=== PATIENT | female | born 1965 | race Caucasian/White ===

== ENCOUNTER → 2016-07-08 | Outpatient (REF) | payer BC ==
[~2016-07-08] MED LIST: /CIPR75TA OR; ACET65TA OR; FLAG500T OR; RANI150C OR; VICO5TAB PO
== END ==
LOC: M LAB REF 15:08
PROVIDERS: ATTEND Internal Medicine
DX: R07.9 Chest pain, unspecified (principal)

== ENCOUNTER → 2016-07-09 | Outpatient (CLI) | payer BC ==
[~2016-07-09] MED LIST changes: +ISOVUE-370 76% 100ML VIAL (Q9967) As Ordered ONE; +LIDOCAINE 1% MDV 20ML VIAL As Ordered ONE
--- NOTE | 2016-07-09 13:13 | REP ---
CTA chest, 07/09/2016: Indication: Atypical chest pain, positive D-dimer, exclude pulmonary embolus. The patient is deaf. Comparison: CT chest with IV contrast 03/18/2007. Technique: Following dynamic IV contrast administration with 75 ml Isovue 370 mg/ml, 3 mm contiguous spiral axial sections were performed through the chest. Findings: The thoracic aorta is without aneurysm or visualized aortic dissection. There are no pathologically enlarged mediastinal or hilar nodes. There are, however, no visualized filling defects within the main, lobar or segmental pulmonary arteries or findings to suggest pulmonary artery embolus. There is some cardiac motion artifact and spray artifact projected over the pulmonary artery outflow tract. Mild interstitial changes/scarring and atelectatic changes seen with lower lobe predominance, stable. Visualized portions of the liver, spleen, pancreas are unremarkable. Adrenal glands are normal. There has been a prior cholecystectomy. Impression1. No evidence of pulmonary artery embolus. 2. Thoracic aorta without aneurysm or dissection. 3. Interstitial changes/scarring and atelectasis bilaterally with lower lobe predominance, stable. Signed by Alisson Edwards MD 07/11/2016 02:42 P
== END ==
LOC: M RAD 09:47
PROVIDERS: ATTEND Internal Medicine
DX: J98.11 Atelectasis (principal)
CPT/HCPCS: 71275; C1894; Q9967

== ENCOUNTER → 2016-08-29 | Outpatient (CLI) | payer BC ==
[~2016-08-29] MED LIST changes: -ISOVUE-370 76% 100ML VIAL (Q9967) As Ordered ONE; -LIDOCAINE 1% MDV 20ML VIAL As Ordered ONE
--- NOTE | 2016-08-29 14:19 | REP ---
TWO VIEW CHEST: Two views of the chest are performed and compared to prior study of 06/08/2012. Mild interstitial prominence appears chronic in nature without evidence of acute infiltrate. The heart is normal in size and the mediastinal silhouette is unremarkable and unchanged. There are degenerative changes of the spine. IMPRESSION: No acute pulmonary disease. Signed by Wilber Zamorano MD 08/29/2016 06:21 P
== END ==
LOC: M LRY 13:02
PROVIDERS: ATTEND Physician Assistant
DX: R05 Cough (principal)

== ENCOUNTER → 2017-05-09 | Outpatient (CLI) | payer BC ==
--- NOTE | 2017-05-09 11:02 | REPMRS ---
Patient History The patient states she has not had a clinical breast exam in over a year. Patient is postmenopausal. No known family history of cancer. Digital Woman Screen Mammo: May 09, 2017 - Exam #: [id number] Bilateral CC and MLO view(s) were taken. Technologist: Tory Good, Technologist Prior study comparison: February 11, 2016, bilateral digital mammo screening bilat, performed at [facility]. September 21, 2013, digital woman screen mammo performed at [facility]. FINDINGS: There are scattered fibroglandular densities. There has been no change in the appearance of the mammogram from the prior studies. There is a mild amount of residual fibroglandular tissue which is fairly symmetric. There is no interval development of dominant mass, architectural distortion, or clustered microcalcification suggestive of malignancy. ASSESSMENT: BI-RADS/ACR category 1 mammogram. Negative. Recommendation Routine screening mammogram in 1 year (for women over age 40). This mammogram was interpreted with the aid of an FDA-approved computer-aided dectection system. Electronically Signed By: Wilber Zamroano MD 05/09/17 [id number]
== END ==
LOC: M WHC 09:27
PROVIDERS: ATTEND Internal Medicine
DX: Z12.31 Encounter for screening mammogram for malignant neoplasm of breast (principal); Z78.0 Asymptomatic menopausal state

== ENCOUNTER → 2017-10-07 | Outpatient (CLI) | payer BC | LOC: M LRY 17:13 | DX: M79.672 Pain in left foot (principal) | CPT/HCPCS: 73630 ==

== ENCOUNTER → 2018-06-01 | Outpatient (REF) | payer BC | LOC: M SFHCLERA 13:45 | DX: J02.9 Acute pharyngitis, unspecified (principal) ==

== ENCOUNTER 2018-07-21 16:12 | Emergency (ER) | payer OTHER, BC ==
[~2018-07-21] VITALS: Ht 162.6 cm; Wt 147.3 kg
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
[2018-07-21] MEDS ORDERED: CYCL5TAB PO (18:20)
[2018-07-21] MEDS ORDERED: NAPR-50 PO (18:20)
[2018-07-21 18:23] VITALS: BP 166/89
== END 2018-07-21 18:24 | disposition home or self-care (01) ==
LOC: M ED 16:12
DX: Z04.1 Encounter for examination and observation following transport accident (principal); S20.212A Contusion of left front wall of thorax, initial encounter; V43.62XA Car passenger injured in collision with other type car in traffic accident, initial encounter; Y92.410 Unspecified street and highway as the place of occurrence of the external cause; K21.9 Gastro-esophageal reflux disease without esophagitis; Z86.718 Personal history of other venous thrombosis and embolism; Z91.018 Allergy to other foods; Z88.2 Allergy status to sulfonamides

== ENCOUNTER → 2018-09-13 | Outpatient (CLI) | payer BC ==
[~2018-09-13] MED LIST changes: +CYCL5TAB PO; +NAPR-50 PO
--- NOTE | 2018-09-13 13:44 | REPMRS ---
Patient History The patient states she has not had a clinical breast exam in over a year. No known family history of cancer. Digital Woman Screen Mammo: September 13, 2018 - Exam #: [id number] Bilateral CC and MLO view(s) were taken. Technologist: Mary Horan Technologist Prior study comparison: May 09, 2017, digital woman screen mammo performed at [facility]. February 11, 2016, bilateral digital mammo screening bilat, performed at [facility]. September 21, 2013, digital woman screen mammo performed at [facility]. FINDINGS: There are scattered fibroglandular densities. There has been no change in the appearance of the mammogram from the prior studies. There is a mild amount of scattered fibroglandular density which is fairly symmetric. There is no interval development of dominant mass, architectural distortion, or clustered microcalcification suggestive of malignancy. 3-D tomosynthesis shows no additional findings. Assessment: BI-RADS/ACR category 1 mammogram. Negative Mammogram. Recommendation Routine screening mammogram of both breasts in 1 year (for women over age 40). This patient's Lifetime Breast Cancer RIsk is estimated at 6.9 %. This mammogram was interpreted with the aid of an FDA-approved computer-aided dectection system. Electronically Signed By: Den Owusu MD 09/13/18 [id number]
== END ==
LOC: M WHC 09:55
PROVIDERS: ATTEND Internal Medicine
DX: Z12.31 Encounter for screening mammogram for malignant neoplasm of breast (principal)

== ENCOUNTER → 2019-07-03 | Outpatient (CLI) | payer BC ==
[~2019-07-03] MED LIST changes: -NAPR-50 PO; +NAPR-837 PO
--- NOTE | 2019-07-03 13:15 | REP ---
MRI LEFT ELBOW: TECHNIQUE: Multiple sequences in the axial, coronal and sagittal planes. There is mild ill-defined high signal on T2-weighted images in the proximal common extensor tendon along the lateral humeral epicondyle compatible with lateral epicondylitis. There is no abnormal signal in the common flexor tendon medially. The medial and lateral collateral ligaments are intact. Biceps, triceps, brachialis, and brachioradialis demonstrate no abnormal signal and appear intact. Ulnar nerve has a normal appearance. No ganglion cyst or joint effusion is seen. No marrow edema or other bone marrow signal abnormality is seen. Joint surfaces demonstrate no focal defect. IMPRESSION: Findings compatible with lateral epicondylitis. No evidence of tendon or ligament tear. Electronically Signed by Wilber Zamorano MD 07/04/2019 09:50 A
--- NOTE | 2019-07-03 13:35 | REP ---
INDICATION: Neck pain PROCEDURE: No MRI cervical spine without contrast. Multiplanar T1, and T2-weighted images multiplanar T1, T2, images. Sagittal STIR images obtained. COMPARISON STUDIES: No prior similar studies FINDINGS: There is llwl-pk-zjwoouvy multilevel degenerative disc disease loss of disc height and disc desiccation seen diffusely throughout the cervical spine. Vertebral heights are well preserved. No randy malalignments. There is mild straightening of the cervical spine. On the sagittal T2-weighted images there is minimal cord impingement more notable at the C5-6 level without evidence of cord compression. No abnormal cord signal. On review of axial images, At C2-3 no significant canal or foraminal narrowing. At C3-4 disc/osteophyte complex with mild left foraminal narrowing and mild canal stenosis. At C4-5 disc/osteophyte complex with mild canal narrowing and mild left foraminal narrowing. At C5-6 disc/osteophyte complex with moderate bilateral foraminal narrowing and sjgc-pk-xkdlupef canal stenosis. At C6-7 disc/osteophyte complex with vkua-qz-rmcqzjpm canal narrowing and toiv-ep-knqyjyfp bilateral foraminal narrowing At C7-T1 no significant canal or foraminal narrowing. On the STIR images, no significant STIR signal abnormality to suggest soft tissue or ligamentous injury. IMPRESSION: Yfrt-lj-swqwtkzi multilevel degenerative disc disease slightly more progressed at the C5-6 and C6-7 levels as described. No definite limiting canal or foraminal stenosis. No abnormal cord signal. Electronically Signed by Cesar Watson MD 07/03/2019 01:27 P
== END ==
LOC: M RAD 10:09
PROVIDERS: ATTEND Physician Assistant
DX: M50.322 Other cervical disc degeneration at C5-C6 level (principal); M50.323 Other cervical disc degeneration at C6-C7 level; M25.78 Osteophyte, vertebrae; M77.12 Lateral epicondylitis, left elbow

== ENCOUNTER → 2019-08-16 | Outpatient (CLI) | payer BC ==
[~2019-08-16] MED LIST changes: +E-Z-GAS II EFFERVESCENT PACKET (SODIUM BICARB./CITRIC ACID/SIMETHICONE) As Ordered ONE; +E-Z-HD 98% w/w 340GM SUSP BTL As Ordered ONE; +E-Z-PAQUE 96% w/w SUSP 176GM BTL As Ordered ONE
--- NOTE | 2019-08-16 19:35 | REP ---
Examination Requested: Esophagram Barium Swallow Reason For Exam/Comment: Dysphasia Esophagram: The procedure was performed JACKELINE Mancilla, under the direct supervision of Dr. Owusu. The images were reviewed with Dr. Owusu. A single PA chest x-ray is submitted as a ambulatory services representative film. The superior mediastinal structures are midline. The heart size is within normal limits. The lungs are clear. Liquid barium and gas producing granules were given in the erect position as well as liquid barium in the prone oblique position, in order to perform a double contrast esophagram examination. Oral and pharyngeal stages of the examination demonstrated laryngeal penetration. Esophageal transport is efficient and there is no esophagitis, stricture, or mucosal ring noted. There is no hiatal hernia noted. Gastroesophageal reflux was not visualized throughout the course of the exam. Impression: 1. Laryngeal penetration, otherwise unremarkable esophagram. 0.3 minutes of fluoroscopy time was utilized for this procedure. Some fluoroscopic images are performed with last image hold technology. These images require no additional radiation. Reviewed by JACKELINE Kam 08/16/2019 05:36 P Electronically Signed by Ellis Owusu MD 08/16/2019 07:26 P
== END ==
LOC: M RAD 10:02
PROVIDERS: ATTEND Internal Medicine
DX: R13.10 Dysphagia, unspecified (principal)

== ENCOUNTER → 2020-03-12 | Outpatient (REF) | payer BC ==
[~2020-03-12] MED LIST changes: -E-Z-GAS II EFFERVESCENT PACKET (SODIUM BICARB./CITRIC ACID/SIMETHICONE) As Ordered ONE; -E-Z-HD 98% w/w 340GM SUSP BTL As Ordered ONE; -E-Z-PAQUE 96% w/w SUSP 176GM BTL As Ordered ONE
== END ==
LOC: M LAB REF 16:08
PROVIDERS: ATTEND Internal Medicine
DX: M25.522 Pain in left elbow (principal)

== ENCOUNTER → 2020-04-11 | Outpatient (CLI) | payer BC ==
--- NOTE | 2020-04-11 10:36 | REPMRS ---
Patient History The patient states she has not had a clinical breast exam in over a year. No known family history of cancer. Digital Woman Screen Mammo: April 11, 2020 - Exam #: [id number] Bilateral CC and MLO view(s) were taken. Technologist: Radha Gatica, Technologist Prior study comparison: September 13, 2018, bilateral digital woman screen mammo performed at [facility]. May 09, 2017, digital woman screen mammo performed at [facility]. February 11, 2016, bilateral digital mammo screening bilat, performed at [facility]. FINDINGS: The breast tissue is almost entirely fat. The Volpara volumetric breast density category is: A. There has been no change in the appearance of the mammogram from the prior studies. There is no interval development of dominant mass, architectural distortion, or grouped microcalcification typical of malignancy. 3-D tomosynthesis shows no additional findings. Assessment: BI-RADS/ACR category 1 mammogram. Negative Mammogram. Recommendation Routine screening mammogram of both breasts in 1 year (for women over age 40). This patient's Lifetime Breast Cancer RIsk is estimated at 6.7 %. This mammogram was interpreted with the aid of an FDA-approved computer-aided dectection system. Electronically Signed By: Den Owusu MD 04/11/20 [id number]
== END ==
LOC: M WHC 09:06
PROVIDERS: ATTEND Internal Medicine
DX: Z12.31 Encounter for screening mammogram for malignant neoplasm of breast (principal)

== ENCOUNTER → 2020-06-26 | Outpatient (CLI) | payer SELFPAY | LOC: M LABSMTC 10:42 | PROVIDERS: ATTEND Pediatrics | DX: Z20.828 Contact with and (suspected) exposure to other viral communicable diseases (principal) ==

== ENCOUNTER → 2021-05-19 | Outpatient (CLI) | payer BC ==
--- NOTE | 2021-05-19 11:16 | REP ---
INDICATION: SCREENING MAMMO. COMPARISON: 04/11/2020 as well as other prior exams. TECHNIQUE: MLO and CC views bilateral breasts with tomosynthesis. FINDINGS: Mild scattered fibroglandular tissue is again noted bilaterally. There is a possible 5 mm nodule in the inferolateral left breast anteriorly, best seen in the CC projection. There is no other evidence of mass or clustered microcalcifications bilaterally. The Volpara volumetric breast density pattern is A. IMPRESSION: BIRADS/ACR category 0, incomplete. Possible 5 mm nodule inferolateral left breast anteriorly. Recommend spot compression views and ultrasound to further evaluate. This patient's Tyrer-zick lifetime breast cancer risk assessment score is 6.2%. This mammogram was interpreted with the aid of an FDA-approved computer-aided detection system. The patient states she had a clinical breast exam in over 1 year ago. The patient letter being requested is M0. RECOMMENDATION: Recommend spot compression views and ultrasound left breast as discussed above. <Electronically signed by Wilber Zamorano > 05/19/21 [id number]
== END ==
LOC: M WHC 10:18
PROVIDERS: ATTEND Internal Medicine
DX: Z12.31 Encounter for screening mammogram for malignant neoplasm of breast (principal); R92.8 Other abnormal and inconclusive findings on diagnostic imaging of breast

== ENCOUNTER → 2021-06-09 | Outpatient (CLI) | payer BC ==
--- NOTE | 2021-06-09 13:01 | REP ---
INDICATION: LEFT BREAST ADD VIEWS. Left breast nodule COMPARISON: Screening mammogram, 05/19/2021. TECHNIQUE: 2D and 3D spot compression views of the left breast were obtained in the CC and MLO orientations. Targeted left breast ultrasound was performed. FINDINGS: In the anterior 3rd of the left breast, below and lateral to the nipple, in the lower outer quadrant, at the 3-4 o'clock position, approximately 4 cm from the nipple, there is an oval, circumscribed, isodense mass measuring 4 mm in diameter. Left breast ultrasound: There are no cystic or solid masses seen in the left breast. IMPRESSION: BIRADS/ACR : Category 3: Probably benign. The patient letter being requested is M0. RECOMMENDATION: Six-month follow-up mammographic and ultrasound evaluation of the left breast. <Electronically signed by Venancio Lomax > 06/09/21 [id number]
== END ==
LOC: M WHC 10:44
PROVIDERS: ATTEND Internal Medicine
DX: N63.23 Unspecified lump in the left breast, lower outer quadrant (principal)
CPT/HCPCS: 76642; 77065; G0279

== ENCOUNTER → 2022-02-17 | Outpatient (CLI) | payer BC | LOC: M WHC 10:00 | PROVIDERS: ATTEND Internal Medicine | DX: R92.2 Inconclusive mammogram (principal) | CPT/HCPCS: 77065; G0279 ==

== ENCOUNTER → 2022-06-02 | Outpatient (CLI) | payer BC | LOC: M WHC 09:44 | PROVIDERS: ATTEND Internal Medicine | DX: Z12.31 Encounter for screening mammogram for malignant neoplasm of breast (principal) ==

== ENCOUNTER 2022-11-08 13:24 | Emergency (ER) | payer BC ==
[~2022-11-08] VITALS: Ht 162.6 cm; Wt 134.5 kg
[2022-11-08 15:05] LABS: BASO # 0.1 10^3/uL (0.0-0.2); BASO % 0.9 % (0.0-1.0); EOS # 0.2 10^3/uL (0.0-0.5); EOS % 2.4 % (0.0-3.0); HEMATOCRIT 43.8 % (36.0-47.0); LYMPH # 2.2 10^3/uL (1.5-5.0); LYMPH % 26.7 % (24.0-44.0); MEAN CORPUSCULAR VOLUME 90.7 fl (80.0-96.0); MONO # 0.5 10^3/uL (0.0-0.8); MONO % 6.1 % (2.0-8.0); NEUTROPHILS # 5.1 10^3/uL (1.5-8.5); NEUTROPHILS % 63.5 % (36.0-66.0); PLATELET COUNT, AUTOMATED 258 10^3/uL (150-450); RED BLOOD COUNT 4.83 10^6/uL (4.00-5.40)
[2022-11-08 15:14] LABS: INR 0.87
[2022-11-08 15:15] LABS: PARTIAL THROMBOPLASTIN TIME 22.8 SECONDS (24.8-34.2)
[2022-11-08 15:31] LABS: ALBUMIN 3.4 G/DL (3.2-5.2); ALKALINE PHOSPHATASE 83 U/L (46-116); ALT/SGPT 27 U/L (7.0-40); AST/SGOT < 8 U/L (<34); BILIRUBIN,DIRECT 0.1 MG/DL (<0.4); BILIRUBIN,TOTAL 0.4 MG/DL (0.3-1.2); BLOOD UREA NITROGEN 15 MG/DL (9-23); CALCIUM LEVEL 8.6 MG/DL (8.5-10.1); CARBON DIOXIDE LEVEL 22 MMOL/L (20-31); CHLORIDE LEVEL 109 MMOL/L (98-107); CREATININE FOR GFR 0.94 MG/DL (0.55-1.30); GLOMERULAR FILTRATION RATE > 60.0 (>51); GLUCOSE, FASTING 87 MG/DL (60-100); POTASSIUM SERUM 4.2 MMOL/L (3.5-5.1); SODIUM LEVEL 140 MMOL/L (136-145); TOTAL PROTEIN 6.3 G/DL (5.7-8.2)
[2022-11-08] MEDS ORDERED: CEPH500C PO (16:11)
[2022-11-08 17:08] VITALS: BP 142/66
== END 2022-11-08 17:14 | disposition home or self-care (01) ==
LOC: M ED 13:24
DX: L03.115 Cellulitis of right lower limb (principal); K90.0 Celiac disease; H91.90 Unspecified hearing loss, unspecified ear; Z88.2 Allergy status to sulfonamides; Z79.899 Other long term (current) drug therapy

== ENCOUNTER 2022-12-06 07:05 | Observation (INO) | payer BC ==
[~2022-12-06] VITALS: Ht 162.6 cm; Wt 133.5 kg
[2022-12-06] VITALS (7 sets, daily range): BP systolic 104–144; BP diastolic 58–90; PULSE 66; TEMP 97–97.9; O2SAT 94–100
[~2022-12-06 07:05] MED LIST changes: +CEPH500C PO
[2022-12-06] MEDS ORDERED: PHEN30CA21 PO (07:19)
[2022-12-06] MEDS ORDERED: CEQU0.09 OU (07:19)
[2022-12-06] MEDS ORDERED: ONDANSETRON 4MG 2ML VIAL IV ONE (07:55)
[2022-12-06] MEDS: MORPHINE 4 MG/ML 1ML VIAL IV PRN ×2 (08:18→09:50)
[2022-12-06 08:50] LABS: BASO # 0.1 10^3/uL (0.0-0.2); BASO % 0.9 % (0.0-1.0); EOS # 0.2 10^3/uL (0.0-0.5); EOS % 1.8 % (0.0-3.0); HEMATOCRIT 43.5 % (36.0-47.0); HEMOGLOBIN 13.7 g/dl (12.0-15.5); LYMPH # 2.1 10^3/uL (1.5-5.0); LYMPH % 25.8 % (24.0-44.0); MEAN CORPUSCULAR HEMOGLOBIN 28.9 pg (27.0-33.0); MEAN CORPUSCULAR HGB CONC 31.5 g/dl (32.0-36.5); MEAN CORPUSCULAR VOLUME 91.8 fl (80.0-96.0); MONO # 0.5 10^3/uL (0.0-0.8); MONO % 5.8 % (2.0-8.0); NEUTROPHILS # 5.4 10^3/uL (1.5-8.5); NEUTROPHILS % 65.2 % (36.0-66.0); PLATELET COUNT, AUTOMATED 297 10^3/uL (150-450); RED BLOOD COUNT 4.74 10^6/uL (4.00-5.40); WHITE BLOOD COUNT 8.2 10^3/uL (4.0-10.0)
[2022-12-06] MEDS ORDERED: ISOVUE-370 76% 100ML VIAL As Ordered ONE (08:57)
[2022-12-06 09:20] LABS: LIPASE 25 U/L (12-53)
[2022-12-06 09:22] LABS: ALBUMIN 3.7 G/DL (3.2-5.2); ALKALINE PHOSPHATASE 86 U/L (46-116); ALT/SGPT 27 U/L (7.0-40); AST/SGOT 19 U/L (<34); BILIRUBIN,DIRECT 0.2 MG/DL (<0.4); BILIRUBIN,TOTAL 0.7 MG/DL (0.3-1.2); BLOOD UREA NITROGEN 12 MG/DL (9-23); CALCIUM LEVEL 9.2 MG/DL (8.5-10.1); CARBON DIOXIDE LEVEL 26 MMOL/L (20-31); CHLORIDE LEVEL 109 MMOL/L (98-107); CK-MB VALUE MASS 7.7 NG/ML (<3.6); CREATININE FOR GFR 0.85 MG/DL (0.55-1.30); GLOMERULAR FILTRATION RATE > 60.0 (>51); GLUCOSE, FASTING 86 MG/DL (60-100); POTASSIUM SERUM 4.1 MMOL/L (3.5-5.1); SODIUM LEVEL 142 MMOL/L (136-145); TOTAL PROTEIN 6.4 G/DL (5.7-8.2)
[2022-12-06 09:23] LABS: THYROID STIMULATING HORMONE 1.989 uIU/ML (0.55-4.78)
[2022-12-06 09:24] LABS: FREE T4 0.96 NG/DL (0.89-1.76)
[2022-12-06 09:25] LABS: CPK CREATINE PHOSPHOKINASE 77 U/L (34-145)
[2022-12-06 09:36] LABS: RSV AMPLIFICATION NEGATIVE (NEGATIVE)
[2022-12-06 09:42] LABS: INR 0.91; PROTHROMBIN TIME 12.4 SECONDS (12.5-14.5)
[2022-12-06 09:43] LABS: PARTIAL THROMBOPLASTIN TIME 28.1 SECONDS (24.8-34.2)
[2022-12-06] MEDS ORDERED: APIXABAN 5 MG TAB (ELIQUIS) PO SCH (10:15)
[2022-12-06] MEDS ORDERED: APIXABAN 5 MG TAB (ELIQUIS) PO ONE ×2 (10:20→11:45)
[2022-12-06] MEDS ORDERED: OMEG1CAP85 PO (10:22)
[2022-12-06] MEDS ORDERED: HOME MED LIST COMPLETE! XX SCH (10:35)
[2022-12-06] MEDS: PERCOCET 5MG/325MG TAB PO PRN ×2 (14:32→20:22)
[2022-12-06] MEDS ORDERED: ONDANSETRON 4MG TAB PO PRN (18:00)
[2022-12-06] MEDS: APIXABAN 5 MG TAB (ELIQUIS) PO SCH (20:21)
[2022-12-06 21:57] LABS: CK-MB VALUE MASS < 1.0 NG/ML (<3.6)
[2022-12-06 21:59] LABS: CPK CREATINE PHOSPHOKINASE 78 U/L (34-145); MB/CK RELATIVE INDEX 1.28 (< OR =4)
[2022-12-07 04:00] VITALS: BP 119/68; TEMP 96.3; O2SAT 98
[2022-12-07 06:44] LABS: HEMATOCRIT 41.5 % (36.0-47.0); HEMOGLOBIN 12.9 g/dl (12.0-15.5); MEAN CORPUSCULAR HEMOGLOBIN 28.8 pg (27.0-33.0); MEAN CORPUSCULAR HGB CONC 31.1 g/dl (32.0-36.5); MEAN CORPUSCULAR VOLUME 92.6 fl (80.0-96.0); PLATELET COUNT, AUTOMATED 298 10^3/uL (150-450); RED BLOOD COUNT 4.48 10^6/uL (4.00-5.40); WHITE BLOOD COUNT 8.9 10^3/uL (4.0-10.0)
[2022-12-07 06:55] LABS: BLOOD UREA NITROGEN 10 MG/DL (9-23); CALCIUM LEVEL 8.8 MG/DL (8.5-10.1); CARBON DIOXIDE LEVEL 27 MMOL/L (20-31); CHLORIDE LEVEL 105 MMOL/L (98-107); CREATININE FOR GFR 0.84 MG/DL (0.55-1.30); GLOMERULAR FILTRATION RATE > 60.0 (>51); GLUCOSE, FASTING 82 MG/DL (60-100); POTASSIUM SERUM 4.2 MMOL/L (3.5-5.1); SODIUM LEVEL 140 MMOL/L (136-145)
[2022-12-07 07:48] VITALS: BP 115/66; TEMP 97.7; O2SAT 99
[2022-12-07] MEDS: APIXABAN 5 MG TAB (ELIQUIS) PO SCH (08:42)
[2022-12-07] MEDS ORDERED: ELIQ5TAB PO (09:37)
[2022-12-07] MEDS ORDERED: OXYC1TAB23 PO (09:37)
[2022-12-07 10:07] VITALS: BP 128/69; O2SAT 96
[2022-12-07] MEDS ORDERED: AMOX875T2 PO (11:24)
[2022-12-07 11:29] VITALS: BP 111/59; TEMP 97.7; O2SAT 94
[2022-12-07 11:32] VITALS: BP 112/59
[2022-12-07 11:34] VITALS: BP 113/62
[2022-12-08 13:08] LABS: ANTI THROMBIN 3 ANTIGEN IMMUNO 86 % (72-124); ANTI THROMBIN 3 FUNCT ACTIVITY 104 % (75-135); CARDIOLIPIN IGA ANTIBODY <9 APL U/mL (0-11); CARDIOLIPIN IGG ANTIBODY <9 GPL U/mL (0-14); CARDIOLIPIN IGM ANTIBODY <9 MPL U/mL (0-12); PROTEIN C FUNCTIONAL ACTIVITY 124 % (73-180); PROTEIN S FUNCTIONAL ACTIVITY 99 % (63-140)
== END 2022-12-07 13:10 | disposition home or self-care (01) ==
LOC: M ED 07:05 → M ED INP 07:06 → ENRESERV 10:20 → M PCU 10:48
PROVIDERS: ADMIT Internal Medicine; ATTEND Internal Medicine
DX: I26.99 Other pulmonary embolism without acute cor pulmonale (principal); R07.1 Chest pain on breathing; R03.0 Elevated blood-pressure reading, without diagnosis of hypertension; R91.8 Other nonspecific abnormal finding of lung field; E66.01 Morbid (severe) obesity due to excess calories; Z68.43 Body mass index [BMI] 50.0-59.9, adult; R06.02 Shortness of breath; Z88.2 Allergy status to sulfonamides; Z86.718 Personal history of other venous thrombosis and embolism; Z79.899 Other long term (current) drug therapy
CPT/HCPCS: 36415; 71045; 71275; 80047; 80048; 80076; 82550; 82553; 83690; 84145; 84439; 84443; 84484; 85025; 85027; 85300; 85301; 85303; 85305; 85610; 85730; 86140; 86147; 87631; 87641; 93005; 93041; 93970; 94760; 96374; 96375; 96376; 99285; J2405; Q9967

== ENCOUNTER 2023-02-22 12:11 | Emergency (ER) | payer BC ==
[~2023-02-22] VITALS: Ht 167.6 cm; Wt 184.1 kg
[~2023-02-22 12:11] MED LIST changes: +AMOX875T2 PO; +CEQU0.09 OU; +ELIQ5TAB PO; +OMEG1CAP85 PO; +OXYC1TAB23 PO; +PHEN30CA21 PO
[2023-02-22] MEDS ORDERED: ASPIRIN 81MG CHEW TABLET PO ONE (12:50)
[2023-02-22 13:36] LABS: BASO # 0.1 10^3/uL (0.0-0.2); BASO % 0.9 % (0.0-1.0); EOS # 0.1 10^3/uL (0.0-0.5); EOS % 2.1 % (0.0-3.0); HEMATOCRIT 41.2 % (36.0-47.0); HEMOGLOBIN 13.1 g/dl (12.0-15.5); LYMPH # 1.9 10^3/uL (1.5-5.0); LYMPH % 28.8 % (24.0-44.0); MEAN CORPUSCULAR HEMOGLOBIN 29.2 pg (27.0-33.0); MEAN CORPUSCULAR HGB CONC 31.8 g/dl (32.0-36.5); MEAN CORPUSCULAR VOLUME 91.8 fl (80.0-96.0); MONO # 0.5 10^3/uL (0.0-0.8); MONO % 7.1 % (2.0-8.0); NEUTROPHILS % 60.5 % (36.0-66.0); PLATELET COUNT, AUTOMATED 246 10^3/uL (150-450); RED BLOOD COUNT 4.49 10^6/uL (4.00-5.40); WHITE BLOOD COUNT 6.6 10^3/uL (4.0-10.0)
[2023-02-22 13:49] LABS: INR 1.19; PROTHROMBIN TIME 14.8 SECONDS (12.5-14.5)
[2023-02-22 13:50] LABS: PARTIAL THROMBOPLASTIN TIME 27.6 SECONDS (24.8-34.2)
[2023-02-22 14:04] LABS: BLOOD UREA NITROGEN 10 MG/DL (9-23); CALCIUM LEVEL 8.6 MG/DL (8.5-10.1); CARBON DIOXIDE LEVEL 29 MMOL/L (20-31); CHLORIDE LEVEL 108 MMOL/L (98-107); CK-MB VALUE MASS < 1.0 NG/ML (<3.6); CREATININE FOR GFR 0.81 MG/DL (0.55-1.30); GLOMERULAR FILTRATION RATE > 60.0 (>51); GLUCOSE, FASTING 87 MG/DL (60-100); POTASSIUM SERUM 4.3 MMOL/L (3.5-5.1); SODIUM LEVEL 142 MMOL/L (136-145)
[2023-02-22 14:09] LABS: CPK CREATINE PHOSPHOKINASE 79 U/L (34-145); MB/CK RELATIVE INDEX 1.26 (< OR =4)
[2023-02-22] MEDS ORDERED: ISOVUE-370 76% 100ML VIAL As Ordered ONE (14:16)
[2023-02-22 14:49] LABS: CK-MB VALUE MASS < 1.0 NG/ML (<3.6)
[2023-02-22 14:56] LABS: CPK CREATINE PHOSPHOKINASE 78 U/L (34-145); MB/CK RELATIVE INDEX 1.28 (< OR =4)
[2023-02-22 15:42] VITALS: BP 142/75; TEMP 97.1; O2SAT 97
== END 2023-02-22 15:42 | disposition home or self-care (01) ==
LOC: M ED 12:11
DX: R07.89 Other chest pain (principal); I10 Essential (primary) hypertension; K90.0 Celiac disease; Z86.718 Personal history of other venous thrombosis and embolism; Z86.711 Personal history of pulmonary embolism; Z88.2 Allergy status to sulfonamides; M54.9 Dorsalgia, unspecified; Z79.01 Long term (current) use of anticoagulants; Z79.899 Other long term (current) drug therapy
CPT/HCPCS: 36415; 71045; 71275; 80048; 82550; 82553; 84484; 85025; 85610; 85730; 93005; 93041; 94760; 99285; Q9967

== ENCOUNTER → 2023-04-18 | Outpatient (REF) | payer BC | LOC: M LAB REF 16:38 | PROVIDERS: ATTEND Internal Medicine | DX: R07.89 Other chest pain (principal); M25.512 Pain in left shoulder ==

== ENCOUNTER → 2023-04-19 | Outpatient (CLI) | payer BC | LOC: M WUC 10:49 | PROVIDERS: ATTEND Internal Medicine | DX: M54.2 Cervicalgia (principal); R07.9 Chest pain, unspecified; M25.512 Pain in left shoulder ==

== ENCOUNTER → 2023-06-02 | Outpatient (REF) | payer BC ==
[2023-06-02 13:46] LABS: BASO # 0.1 10^3/uL (0.0-0.2); BASO % 0.6 % (0.0-1.0); EOS # 0.2 10^3/uL (0.0-0.5); EOS % 2.3 % (0.0-3.0); HEMATOCRIT 41.3 % (36.0-47.0); HEMOGLOBIN 12.9 g/dl (12.0-15.5); LYMPH # 1.9 10^3/uL (1.5-5.0); LYMPH % 23.6 % (24.0-44.0); MEAN CORPUSCULAR HEMOGLOBIN 29.1 pg (27.0-33.0); MEAN CORPUSCULAR HGB CONC 31.2 g/dl (32.0-36.5); MONO # 0.5 10^3/uL (0.0-0.8); MONO % 5.7 % (2.0-8.0); NEUTROPHILS # 5.5 10^3/uL (1.5-8.5); NEUTROPHILS % 67.3 % (36.0-66.0); PLATELET COUNT, AUTOMATED 260 10^3/uL (150-450); RED BLOOD COUNT 4.44 10^6/uL (4.00-5.40); WHITE BLOOD COUNT 8.2 10^3/uL (4.0-10.0)
[2023-06-02 14:11] LABS: ALBUMIN 3.5 G/DL (3.2-5.2); ALKALINE PHOSPHATASE 79 U/L (46-116); ALT/SGPT 23 U/L (7.0-40); AST/SGOT 16 U/L (<34); BILIRUBIN,TOTAL 0.3 MG/DL (0.3-1.2); BLOOD UREA NITROGEN 11 MG/DL (9-23); CALCIUM LEVEL 8.9 MG/DL (8.5-10.1); CARBON DIOXIDE LEVEL 29 MMOL/L (20-31); CHLORIDE LEVEL 106 MMOL/L (98-107); GLOMERULAR FILTRATION RATE > 60.0 (>51); GLUCOSE, FASTING 90 MG/DL (60-100); POTASSIUM SERUM 4.6 MMOL/L (3.5-5.1); SODIUM LEVEL 142 MMOL/L (136-145); TOTAL PROTEIN 6.3 G/DL (5.7-8.2)
== END ==
LOC: M WUC 12:25
PROVIDERS: ATTEND Internal Medicine
DX: D68.69 Other thrombophilia (principal); K90.0 Celiac disease; E78.00 Pure hypercholesterolemia, unspecified

== ENCOUNTER → 2023-06-07 | Outpatient (CLI) | payer BC | LOC: M WHC 11:15 | PROVIDERS: ATTEND Internal Medicine | DX: Z12.31 Encounter for screening mammogram for malignant neoplasm of breast (principal) ==

== ENCOUNTER → 2023-07-04 | Outpatient (CLI) | payer BC | LOC: M PLAIMG 14:45 | PROVIDERS: ATTEND Orthopaedic Surgery | DX: M75.02 Adhesive capsulitis of left shoulder (principal); M25.512 Pain in left shoulder; M19.011 Primary osteoarthritis, right shoulder ==

== ENCOUNTER → 2023-07-28 | Outpatient (REF) | payer BC ==
[2023-07-28 16:46] LABS: CK-MB VALUE MASS 2.5 NG/ML (<3.6)
[2023-07-28 16:48] LABS: MB/CK RELATIVE INDEX 2.08 (< OR =4)
== END ==
LOC: M LAB REF 16:03
PROVIDERS: ATTEND Nurse Practitioner Family
DX: R06.02 Shortness of breath (principal)

== ENCOUNTER 2023-11-11 09:23 | Emergency (ER) | payer BC ==
[~2023-11-11] VITALS: Ht 162.6 cm; Wt 141.3 kg
[2023-11-11] MEDS ORDERED: ISOVUE-370 76% 100ML VIAL As Ordered ONE (13:14)
[2023-11-11] MEDS: NS 1,000 ML IV ONE (13:22)
[2023-11-11 13:42] LABS: BASO # 0.1 10^3/uL (0.0-0.2); BASO % 0.9 % (0.0-1.0); EOS # 0.2 10^3/uL (0.0-0.5); EOS % 1.6 % (0.0-3.0); HEMATOCRIT 46.3 % (36.0-47.0); HEMOGLOBIN 14.7 g/dl (12.0-15.5); LYMPH % 22.3 % (24.0-44.0); MEAN CORPUSCULAR HEMOGLOBIN 29.1 pg (27.0-33.0); MEAN CORPUSCULAR HGB CONC 31.7 g/dl (32.0-36.5); MEAN CORPUSCULAR VOLUME 91.7 fl (80.0-96.0); MONO # 0.5 10^3/uL (0.0-0.8); MONO % 5.2 % (2.0-8.0); NEUTROPHILS # 6.3 10^3/uL (1.5-8.5); NEUTROPHILS % 69.3 % (36.0-66.0); PLATELET COUNT, AUTOMATED 267 10^3/uL (150-450); RED BLOOD COUNT 5.05 10^6/uL (4.00-5.40); WHITE BLOOD COUNT 9.1 10^3/uL (4.0-10.0)
[2023-11-11 14:02] LABS: CK-MB VALUE MASS < 1.0 NG/ML (<3.6); INR 1.11
[2023-11-11 14:12] LABS: CPK CREATINE PHOSPHOKINASE 134 U/L (34-145); MB/CK RELATIVE INDEX 0.74 (< OR =4)
[2023-11-11 15:31] LABS: CK-MB VALUE MASS < 1.0 NG/ML (<3.6)
[2023-11-11 15:39] LABS: CPK CREATINE PHOSPHOKINASE 121 U/L (34-145); MB/CK RELATIVE INDEX 0.82 (< OR =4)
[2023-11-11] MEDS ORDERED: CYCL-707 PO (15:42)
[2023-11-11 16:05] VITALS: BP 148/78; TEMP 97.7; O2SAT 99
== END 2023-11-11 16:07 | disposition home or self-care (01) ==
LOC: M ED 09:23
DX: M62.838 Other muscle spasm (principal); R00.1 Bradycardia, unspecified; I45.9 Conduction disorder, unspecified; Z88.2 Allergy status to sulfonamides; Z91.018 Allergy to other foods; Z79.2 Long term (current) use of antibiotics; Z79.899 Other long term (current) drug therapy
CPT/HCPCS: 71275; 80047; 82550; 82553; 84484; 85025; 85610; 85730; 93005; 96360; 96361; 99284; Q9967

== ENCOUNTER → 2023-11-23 | Outpatient (REF) | payer BC ==
[~2023-11-23] MED LIST changes: +CYCL-707 PO
== END ==
LOC: M LAB REF 12:28
PROVIDERS: ATTEND Nurse Practitioner Family
DX: L03.114 Cellulitis of left upper limb (principal); W55.01XA Bitten by cat, initial encounter; Y92.9 Unspecified place or not applicable

== ENCOUNTER 2024-06-01 15:43 | Emergency (ER) | payer BC ==
[~2024-06-01] VITALS: Ht 160 cm; Wt 150.4 kg
[~2024-06-01 15:43] MED LIST changes: -CYCL5TAB PO; +CYCL5TAB4 PO; +OMEG-28 PO; -OMEG1CAP85 PO
[2024-06-01 15:49] VITALS: TEMP 97.9
[2024-06-01] MEDS ORDERED: ISOVUE-370 76% 100ML VIAL As Ordered ONE (18:37)
[2024-06-01 18:41] LABS: BASO # 0.1 10^3/uL (0.0-0.2); BASO % 0.7 % (0.0-1.0); EOS # 0.2 10^3/uL (0.0-0.5); EOS % 1.9 % (0.0-3.0); HEMATOCRIT 48.3 % (36.0-47.0); HEMOGLOBIN 15.3 g/dl (12.0-15.5); LYMPH # 2.5 10^3/uL (1.5-5.0); LYMPH % 21.4 % (24.0-44.0); MEAN CORPUSCULAR HEMOGLOBIN 28.9 pg (27.0-33.0); MEAN CORPUSCULAR HGB CONC 31.7 g/dl (32.0-36.5); MEAN CORPUSCULAR VOLUME 91.1 fl (80.0-96.0); MONO # 0.6 10^3/uL (0.0-0.8); MONO % 5.4 % (2.0-8.0); NEUTROPHILS % 69.1 % (36.0-66.0); PLATELET COUNT, AUTOMATED 290 10^3/uL (150-450); WHITE BLOOD COUNT 11.6 10^3/uL (4.0-10.0)
[2024-06-01 18:52] LABS: INR 0.87; PROTHROMBIN TIME 12.1 SECONDS (12.5-14.5)
[2024-06-01 19:19] LABS: ALBUMIN 3.8 G/DL (3.2-5.2); ALKALINE PHOSPHATASE 85 U/L (35-104); ALT/SGPT 29 U/L (7.0-40); AST/SGOT 34 U/L (<34); BILIRUBIN,DIRECT < 0.1 MG/DL (<0.4); BILIRUBIN,TOTAL 0.3 MG/DL (0.3-1.2); TOTAL PROTEIN 7.7 G/DL (5.7-8.2)
[2024-06-01] MEDS: ACETAMINOPHEN *IV* 1,000 MG in IV 1 EA IV ONE (19:49)
[2024-06-01 20:45] LABS: CK-MB VALUE MASS < 1.0 NG/ML (<3.6)
[2024-06-01 20:47] LABS: CPK CREATINE PHOSPHOKINASE 88 U/L (34-145); MB/CK RELATIVE INDEX 1.13 (< OR =4)
[2024-06-01 21:47] LABS: CK-MB VALUE MASS < 1.0 NG/ML (<3.6)
[2024-06-01 21:49] LABS: CPK CREATINE PHOSPHOKINASE 83 U/L (34-145)
[2024-06-01 22:00] VITALS: BP 159/90; O2SAT 96
== END 2024-06-01 22:29 | disposition home or self-care (01) ==
LOC: M ED 15:43
DX: R06.02 Shortness of breath (principal); R00.2 Palpitations; M54.50 Low back pain, unspecified; Z88.2 Allergy status to sulfonamides; Z91.018 Allergy to other foods; Z79.01 Long term (current) use of anticoagulants; Z79.899 Other long term (current) drug therapy
CPT/HCPCS: 36415; 71045; 71275; 80047; 80076; 82550; 82553; 84484; 85025; 85610; 93005; 93041; 93971; 94760; 96365; 99285; J0131; Q9967

== ENCOUNTER → 2024-06-08 | Outpatient (CLI) | payer BC | LOC: M WHC 11:58 | PROVIDERS: ATTEND Internal Medicine | DX: Z12.31 Encounter for screening mammogram for malignant neoplasm of breast (principal); R92.323 Mammographic fibroglandular density, bilateral breasts ==

== ENCOUNTER 2024-10-31 08:49 | Day surgery (SDC) | payer MEDICARE, BC ==
[~2024-10-31] VITALS: Ht 161.3 cm; Wt 145.2 kg
[~2024-10-31 08:49] MED LIST changes: +FAMO40TA3 PO; +FLUTISP; +LIDOCAINE 2% 100MG/5ML SDV (FOR ANES.) As Ordered ONE; +fentaNYL 100 MCG/2 ML INJECTION As Ordered ONE; +propofoL 200 MG/20 ML VIAL As Ordered ONE
[2024-10-31 11:10] VITALS: TEMP 98.1
[2024-10-31 11:28] VITALS: BP 147/74; O2SAT 95
== END 2024-10-31 11:45 | disposition home or self-care (01) ==
LOC: M OPP 08:49
PROVIDERS: ATTEND Internal Medicine Gastroenterology
DX: Z12.11 Encounter for screening for malignant neoplasm of colon (principal); Z12.12 Encounter for screening for malignant neoplasm of rectum; K64.0 First degree hemorrhoids; K57.30 Diverticulosis of large intestine without perforation or abscess without bleeding; K29.80 Duodenitis without bleeding; K20.90 Esophagitis, unspecified without bleeding; K90.0 Celiac disease; Z86.718 Personal history of other venous thrombosis and embolism; G47.30 Sleep apnea, unspecified; Z90.710 Acquired absence of both cervix and uterus; Z79.01 Long term (current) use of anticoagulants; Z79.899 Other long term (current) drug therapy; Z88.2 Allergy status to sulfonamides; Z91.048 Other nonmedicinal substance allergy status
CPT/HCPCS: 43239; 88305; G0121; J3010

== ENCOUNTER → 2025-04-15 | Outpatient (CLI) | payer MEDICARE, BC ==
[~2025-04-15] MED LIST changes: -LIDOCAINE 2% 100MG/5ML SDV (FOR ANES.) As Ordered ONE; -fentaNYL 100 MCG/2 ML INJECTION As Ordered ONE; -propofoL 200 MG/20 ML VIAL As Ordered ONE
== END ==
LOC: M WUC 09:34
DX: Z09 Encounter for follow-up examination after completed treatment for conditions other than malignant neoplasm (principal); Z87.39 Personal history of other diseases of the musculoskeletal system and connective tissue

== ENCOUNTER → 2025-06-04 | Outpatient (REF) | payer MEDICARE, BC | LOC: M LAB REF 13:52 | DX: M25.50 Pain in unspecified joint (principal) ==

== ENCOUNTER → 2025-06-05 | Outpatient (CLI) | payer MEDICARE, BC | LOC: M RAD 10:10 | DX: M79.672 Pain in left foot (principal) ==

== ENCOUNTER → 2025-06-11 | Outpatient (CLI) | payer MEDICARE, BC | LOC: M WHC 09:40 | PROVIDERS: ATTEND Internal Medicine | DX: Z12.31 Encounter for screening mammogram for malignant neoplasm of breast (principal); R92.323 Mammographic fibroglandular density, bilateral breasts ==